=== PATIENT | female | born 1995 | race Caucasian/White ===

== ENCOUNTER 2018-05-20 18:14 | Emergency (ER) | payer OTHER, MEDICAID ==
[~2018-05-20] VITALS: Ht 165.1 cm; Wt 56.2 kg
[2018-05-20 18:24] VITALS: BP 120/72
== END 2018-05-20 19:23 | disposition home or self-care (01) ==
LOC: M.ERS 18:14
DX: M25.552 Pain in left hip (principal); M25.551 Pain in right hip; F17.210 Nicotine dependence, cigarettes, uncomplicated